=== PATIENT | male | born 1985 | race Caucasian/White ===

== ENCOUNTER 2020-04-10 16:49 | Emergency (ER) | payer OTHER ==
[2020-04-10 20:22] LABS: HEMOGLOBIN 15.3 gm/dl (14.0-17.5); RED BLOOD COUNT 4.8 M/UL (4.20-5.50); WHITE BLOOD COUNT 9.2 K/UL (4.5-11.0)
[2020-04-10 20:43] LABS: BUN/CREATININE RATIO 9 (0-10)
[2020-04-10] MEDS ORDERED: CLINDAMYCIN HC150 MG PO (23:16)
[2020-04-10] MEDS ORDERED: LODINE CAP 300300 MG PO (23:16)
[2020-04-10] MEDS ORDERED: NORFLEX 100 MG100 MG PO (23:16)
== END 2020-04-10 23:30 | disposition home or self-care (01) ==
LOC: ER1 16:49
PROVIDERS: Emergency Medicine
DX: S60.221A Contusion of right hand, initial encounter (principal); S20.212A Contusion of left front wall of thorax, initial encounter; S30.0XXA Contusion of lower back and pelvis, initial encounter; L02.01 Cutaneous abscess of face; L03.211 Cellulitis of face; F17.210 Nicotine dependence, cigarettes, uncomplicated; Z88.0 Allergy status to penicillin; Y08.89XA Assault by other specified means, initial encounter; Y92.009 Unspecified place in unspecified non-institutional (private) residence as the place of occurrence of the external cause
CPT/HCPCS: 70487; 71111; 72100; 73130; 80053; 85025; 96365; 96375; 99284; J1885; Q9967